=== PATIENT | male | born 1980 | race Caucasian/White ===

== ENCOUNTER 2019-12-16 10:41 | Emergency (ER) | payer MEDICAID ==
[~2019-12-16] VITALS: Ht 177.8 cm; Wt 78.9 kg
[2019-12-16 10:56] VITALS: BP 127/75
--- NOTE | 2019-12-16 11:04 | NUR ---
PT TAKEN TO BED 4.
--- NOTE | 2019-12-16 11:08 | NUR ---
39/M c/o left ear pain x2 days. Denies any drainage or blood from ear. Patient AOX4.
--- NOTE | 2019-12-16 11:41 | NUR ---
IRRIGATED LEFT EAR WITH WATER/HYDROGEN PEROXIDE WITHOUT ANY ISSUES
[2019-12-16 12:26] VITALS: BP 116/82
--- NOTE | 2019-12-16 12:26 | NUR ---
Patient discharged with v/s stable. Written and verbal after care instructions given and explained. Patient alert, oriented and verbalized understanding of instructions. Ambulatory with steady gait. All questions addressed prior to discharge. ID band removed. Patient advised to follow up with PMD. Rx of Augmentin 875mg given. Patient educated on indication of medication including possible reaction and side effects. Opportunity to ask questions provided and answered.
== END 2019-12-16 12:26 | disposition home or self-care (01) ==
LOC: MED 10:41
DX: H61.22 Impacted cerumen, left ear (principal); H66.92 Otitis media, unspecified, left ear
CPT/HCPCS: 99283